=== PATIENT | male | born 1975 | race Caucasian/White ===

== ENCOUNTER 2018-05-06 10:57 | Emergency (ER) | payer SELFPAY ==
[~2018-05-06] VITALS: Ht 182.9 cm; Wt 80.0 kg
[~2018-05-06 10:57] MED LIST: ALPR1TAB10; BENADRYL; BISA10SU54; CARV-39; CETI-18; FELO10TA; HYDR-3245; LEVE500T53; NABUMETONE; PHEN100C; PREG100C; PREG150C PO; ZOLP10TA
[2018-05-06 11:02] VITALS: BP 170/91
[2018-05-06] MEDS ORDERED: METOCLOPRAMIDE 5 MG/ML, 2ML ONE (11:23)
[2018-05-06] MEDS ORDERED: FAMOTIDINE 20 MG/2 ML ONE (11:24)
[2018-05-06] MEDS ORDERED: LORazepam 2 MG/ML, 1ML ONE (11:24)
[2018-05-06] MEDS ORDERED: LORazepam 2 MG/ML, 1ML IVPush ONE (11:30)
[2018-05-06] MEDS ORDERED: METOCLOPRAMIDE 5 MG/ML, 2ML IVPush ONE (11:30)
[2018-05-06] MEDS ORDERED: FAMOTIDINE 20 MG/2 ML IVP ONE (11:30)
[2018-05-06] MEDS ORDERED: SODIUM CHLORIDE 0.9% 1,000ML IVBOLUS ONE (11:30)
--- NOTE | 2018-05-06 11:38 | NUR ---
PT BECAME VERBALLY ABUSIVE WITH STAFF AND EXTREMELY AGITATED. NOT COOPERATIVE. YELLING AT STAFF. STEVE CLARK AND DR CAMPA TO BEDSIDE TO TALK TO PT. PT REFUSING TO COOPERATE WITH STAFF. CONTINUES TO BE VERBALLY ABUSIVE AND THREATENING. ERPA EDUCATED PT AND TOLD HIM HE HAS TO COOPERATE IN ORDER TO RECIEVE TREATMENT, PT EDCUATED ON TOLERABLE BEHAVIOR WITH STAFF. PT REFUSES TO COOPERATE DESPITE EDUCATION. PT ASKED TO LEAVE AND REFUSES. SECURITY CALLED. PIV DC'D. PT CONTINUES TO YELL IN ROOM.
--- NOTE | 2018-05-06 11:50 | NUR ---
PT ESCORTED TO LOBBY BY SECURITY.
== END 2018-05-06 11:52 | disposition home or self-care (01) ==
LOC: ED 11:40
DX: R11.2 Nausea with vomiting, unspecified (principal); R19.7 Diarrhea, unspecified; R50.9 Fever, unspecified; R10.9 Unspecified abdominal pain; I10 Essential (primary) hypertension; F41.1 Generalized anxiety disorder; G89.29 Other chronic pain; G40.909 Epilepsy, unspecified, not intractable, without status epilepticus; Z90.89 Acquired absence of other organs; Z90.49 Acquired absence of other specified parts of digestive tract
CPT/HCPCS: 74022; 99283